=== PATIENT | female | born 1955 | race African-American/Black ===

== ENCOUNTER → 2017-04-16 | Outpatient (CLI) | payer OTHER ==
[~2017-04-16] VITALS: Ht 152.4 cm; Wt 63.5 kg
[~2017-04-16] MED LIST: ATARAX25 MG PO; COZAAR50 MG; COZAAR50 MG PO; LIPITOR20 MG; LIPITOR20 MG PO; SYNTHROID50 MCG; SYNTHROID50 MCG PO; ZANTAC300 MG; ZANTAC300 MG PO; ZYRTEC10 MG PO
== END | disposition home or self-care (01) ==
LOC: PPHC 15:25
DX: Z76.0 Encounter for issue of repeat prescription (principal)

== ENCOUNTER 2017-05-14 06:08 | Outpatient (CLI) | payer OTHER | END 2017-05-14 06:22 | disposition home or self-care (01) | LOC: LAB 06:08 | DX: Z00.00 Encounter for general adult medical examination without abnormal findings (principal) ==

== ENCOUNTER → 2017-06-07 | Outpatient (CLI) | payer OTHER | END | disposition home or self-care (01) | LOC: PPHC 15:48 | DX: Z01.89 Encounter for other specified special examinations (principal); Z76.0 Encounter for issue of repeat prescription ==

== ENCOUNTER 2017-10-30 06:08 | Outpatient (CLI) | payer OTHER | END 2017-10-30 06:20 | disposition home or self-care (01) | LOC: LAB 06:08 | DX: I10 Essential (primary) hypertension (principal) ==

== ENCOUNTER → 2018-01-10 06:20 | Outpatient (CLI) | payer OTHER | END | disposition home or self-care (01) | LOC: LAB 06:20 | DX: I10 Essential (primary) hypertension (principal); E78.2 Mixed hyperlipidemia; R73.03 Prediabetes ==

== ENCOUNTER 2018-03-13 06:19 | Outpatient (CLI) | payer OTHER | END 2018-03-13 06:29 | disposition home or self-care (01) | LOC: LAB 06:19 | DX: E78.89 Other lipoprotein metabolism disorders (principal) ==

== ENCOUNTER 2018-10-17 06:06 | Outpatient (CLI) | payer OTHER | END 2018-10-17 16:19 | disposition home or self-care (01) | LOC: LAB 06:06 | DX: E78.2 Mixed hyperlipidemia (principal); E03.8 Other specified hypothyroidism; E78.49 Other hyperlipidemia; E55.9 Vitamin D deficiency, unspecified; N39.0 Urinary tract infection, site not specified; I10 Essential (primary) hypertension ==

== ENCOUNTER 2019-02-06 06:06 | Outpatient (CLI) | payer OTHER | END 2019-02-06 15:00 | disposition home or self-care (01) | LOC: LAB 06:06 | DX: E03.8 Other specified hypothyroidism (principal) ==

== ENCOUNTER 2019-02-11 08:54 | Outpatient (CLI) | payer OTHER | END 2019-02-11 09:01 | disposition home or self-care (01) | LOC: SONOGRAMA 08:54 | DX: E04.8 Other specified nontoxic goiter (principal) ==

== ENCOUNTER 2019-05-08 06:21 | Outpatient (CLI) | payer OTHER | END 2019-05-08 06:27 | disposition home or self-care (01) | LOC: LAB 06:21 | DX: E55.9 Vitamin D deficiency, unspecified (principal); Z00.00 Encounter for general adult medical examination without abnormal findings; E03.8 Other specified hypothyroidism; E11.9 Type 2 diabetes mellitus without complications; E78.49 Other hyperlipidemia ==

== ENCOUNTER 2019-06-01 08:10 | Outpatient (CLI) | payer OTHER | END 2019-06-01 08:20 | disposition home or self-care (01) | LOC: SONOGRAMA 08:10 | DX: E04.8 Other specified nontoxic goiter (principal) ==

== ENCOUNTER 2019-12-08 10:56 | Outpatient (CLI) | payer OTHER | END 2019-12-08 10:58 | disposition home or self-care (01) | LOC: SONOGRAMA 10:56 | PROVIDERS: ATTEND Specialist | DX: E04.1 Nontoxic single thyroid nodule (principal) ==

== ENCOUNTER 2019-12-10 16:21 | Outpatient (CLI) | payer OTHER | END 2019-12-10 18:00 | disposition home or self-care (01) | LOC: PPH VACUNA 16:21 | DX: Z23 Encounter for immunization (principal) ==

== ENCOUNTER → 2020-01-27 06:26 | Outpatient (CLI) | payer OTHER | END | disposition home or self-care (01) | LOC: LAB 06:26 | PROVIDERS: ATTEND Internal Medicine | DX: I10 Essential (primary) hypertension (principal); E78.2 Mixed hyperlipidemia; E03.8 Other specified hypothyroidism; Z12.11 Encounter for screening for malignant neoplasm of colon; E11.00 Type 2 diabetes mellitus with hyperosmolarity without nonketotic hyperglycemic-hyperosmolar coma (NKHHC) ==

== ENCOUNTER 2020-03-03 07:41 | Outpatient (CLI) | payer OTHER | END 2020-03-03 07:43 | disposition home or self-care (01) | LOC: SONOGRAMA 07:41 | PROVIDERS: ATTEND Pathology Anatomic Pathology & Clinical Pathology | DX: E04.1 Nontoxic single thyroid nodule (principal) ==

== ENCOUNTER 2020-08-10 12:40 | Outpatient (CLI) | payer OTHER | END 2020-08-10 12:53 | disposition home or self-care (01) | LOC: NUCLEAR 12:40 | PROVIDERS: ATTEND Internal Medicine Cardiovascular Disease | DX: M81.0 Age-related osteoporosis without current pathological fracture (principal); E55.9 Vitamin D deficiency, unspecified ==

== ENCOUNTER 2020-09-21 06:07 | Outpatient (CLI) | payer OTHER | END 2020-09-21 06:08 | disposition home or self-care (01) | LOC: LAB 06:07 | PROVIDERS: ATTEND Internal Medicine Cardiovascular Disease | DX: E03.9 Hypothyroidism, unspecified (principal); E11.9 Type 2 diabetes mellitus without complications; I10 Essential (primary) hypertension; E55.9 Vitamin D deficiency, unspecified ==

== ENCOUNTER 2020-12-20 09:07 | Outpatient (CLI) | payer OTHER | END 2020-12-20 10:07 | disposition home or self-care (01) | LOC: PPH VACUNA 09:07 | PROVIDERS: ATTEND Emergency Medicine Pediatric Emergency Medicine | DX: Z23 Encounter for immunization (principal) ==

== ENCOUNTER 2021-04-20 09:50 | Outpatient (CLI) | payer OTHER | END 2021-04-20 10:00 | disposition home or self-care (01) | LOC: LAB 09:50 | PROVIDERS: ATTEND Internal Medicine | DX: I10 Essential (primary) hypertension (principal); I70.0 Atherosclerosis of aorta; E03.1 Congenital hypothyroidism without goiter ==

== ENCOUNTER 2021-08-03 07:36 | Outpatient (CLI) | payer OTHER | END 2021-08-03 07:49 | disposition home or self-care (01) | LOC: MAMO-SONO 07:36 | PROVIDERS: ATTEND Internal Medicine | DX: Z12.31 Encounter for screening mammogram for malignant neoplasm of breast (principal) ==

== ENCOUNTER 2021-10-04 06:07 | Outpatient (CLI) | payer OTHER | END 2021-10-04 06:09 | disposition home or self-care (01) | LOC: LAB 06:07 | PROVIDERS: ATTEND Internal Medicine | DX: I10 Essential (primary) hypertension (principal); I70.0 Atherosclerosis of aorta; E11.00 Type 2 diabetes mellitus with hyperosmolarity without nonketotic hyperglycemic-hyperosmolar coma (NKHHC); E78.2 Mixed hyperlipidemia; E03.1 Congenital hypothyroidism without goiter ==

== ENCOUNTER → 2022-05-15 13:14 | Outpatient (CLI) | payer OTHER | END | disposition home or self-care (01) | LOC: LAB 13:14 | PROVIDERS: ATTEND Internal Medicine Cardiovascular Disease | DX: D64.9 Anemia, unspecified (principal); R10.9 Unspecified abdominal pain; E78.5 Hyperlipidemia, unspecified; R73.09 Other abnormal glucose ==

== ENCOUNTER 2022-06-05 12:44 | Outpatient (CLI) | payer OTHER | END 2022-06-05 12:49 | disposition home or self-care (01) | LOC: SONOGRAMA 12:44 | DX: E04.1 Nontoxic single thyroid nodule (principal); R31.21 Asymptomatic microscopic hematuria ==

== ENCOUNTER 2022-07-20 06:20 | Outpatient (CLI) | payer OTHER | END 2022-07-20 06:23 | disposition home or self-care (01) | LOC: LAB 06:20 | PROVIDERS: ATTEND Internal Medicine | DX: E11.65 Type 2 diabetes mellitus with hyperglycemia (principal); E78.2 Mixed hyperlipidemia; I10 Essential (primary) hypertension; Z12.11 Encounter for screening for malignant neoplasm of colon ==

== ENCOUNTER 2022-10-26 06:21 | Outpatient (CLI) | payer OTHER | END 2022-10-26 06:23 | disposition home or self-care (01) | LOC: LAB 06:21 | PROVIDERS: ATTEND Internal Medicine | DX: E11.65 Type 2 diabetes mellitus with hyperglycemia (principal); I10 Essential (primary) hypertension; E03.8 Other specified hypothyroidism; C73 Malignant neoplasm of thyroid gland ==

== ENCOUNTER 2023-01-09 01:50 | Outpatient (CLI) | payer OTHER | END 2023-01-09 02:00 | disposition home or self-care (01) | LOC: PPH VACUNA 01:50 | PROVIDERS: ATTEND Emergency Medicine Pediatric Emergency Medicine | DX: Z23 Encounter for immunization (principal) | CPT/HCPCS: 90686; G0008 ==

== ENCOUNTER → 2023-01-11 06:45 | Outpatient (CLI) | payer OTHER ==
[2023-01-11 07:15] LABS: HEMATOCRIT 34.3 % (36.0-45.00); HEMOGLOBIN 11.7 g/dL (12.0-15.00); MEAN CELL VOLUME 87.7 fL (80.00-100.00); MEAN CORPUSCULAR HEMOGLOBIN 29.8 pg (27.00-32.0); PLATELET COUNT 211 K/uL (150-450); RED BLOOD COUNT 3.91 M/uL (4.00-6.00); RED CELL DISTRIBUTION WIDTH 13.9 % (11.5-14.5)
[2023-01-11 07:45] LABS: PH,URINE 5.5 (5.0-8.0); URINE APPEARANCE Clear; URINE BILIRRUBIN Negative (NEGATIVE); URINE BLOOD Trace; URINE COLOR Yellow; URINE GLUCOSE Negative (NEGATIVE); URINE LEUKOCYTE Negative; URINE NITRATE Negative; URINE PROTEIN Negative (NEGATIVE); URINE UROBILINOGEN 0.2 E.U./dl
[2023-01-11 07:50] LABS: URINE RBC 6.7 uL (0.0-20.8)
[2023-01-11 08:00] LABS: ALBUMIN 3.9 gm/dL (3.4-5.0); BILIRUBIN TOTAL 0.47 mg/dL (0.3-1.2); CALCIUM 9.2 mg/dL (8.5-10.1); CREATININE SERUM 1.01 mg/dL (0.55-1.02); GFR 55.01; GLOBULINA 3.2 G/DL (2.4-3.5); POTASSIUM 4.61 mEq/L (3.5-5.1); TOTAL PROTEIN 7.1 gm/dL (6.4-8.2)
[2023-01-11 08:07] LABS: URINE BACTERIA 3.7 uL (0.0-1933); URINE EPITHELIAL CELLS 1.2 uL (0.0-38.8); URINE WBC 1.6 uL (0.0-23.2)
== END | disposition home or self-care (01) ==
LOC: LAB 06:45
PROVIDERS: ATTEND Internal Medicine
DX: R05.9 Cough, unspecified (principal)

== ENCOUNTER 2023-05-01 10:16 | Outpatient (CLI) | payer OTHER | END 2023-05-01 10:22 | disposition home or self-care (01) | LOC: RAD 10:16 | PROVIDERS: ATTEND Internal Medicine | DX: M54.2 Cervicalgia (principal); J06.9 Acute upper respiratory infection, unspecified ==

== ENCOUNTER 2023-05-24 06:04 | Outpatient (CLI) | payer OTHER ==
[2023-05-24 07:10] LABS: HEMOGLOBIN 11.8 g/dL (12.0-15.00); MEAN CELL VOLUME 89.2 fL (80.00-100.00); MEAN CORPUSCULAR HEMOGLOBIN 30.2 pg (27.00-32.0); MEAN CORPUSCULAR HGB CONC 33.9 g/dl (32.0-36.0); PLATELET COUNT 223 K/uL (150-450); RED BLOOD COUNT 3.92 M/uL (4.00-6.00); RED CELL DISTRIBUTION WIDTH 13.8 % (11.5-14.5)
[2023-05-24 07:14] LABS: PH,URINE 5.5 (5.0-8.0); URINE APPEARANCE Clear; URINE BILIRRUBIN Negative (NEGATIVE); URINE BLOOD Moderate; URINE COLOR Yellow; URINE GLUCOSE Negative (NEGATIVE); URINE LEUKOCYTE Negative; URINE NITRATE Negative; URINE PROTEIN Negative (NEGATIVE); URINE UROBILINOGEN 0.2 E.U./dl
[2023-05-24 07:18] LABS: URINE BACTERIA 7.5 uL (0.0-1933); URINE EPITHELIAL CELLS 2.1 uL (0.0-38.8); URINE WBC 3.2 uL (0.0-23.2)
[2023-05-24 07:46] LABS: ALBUMIN 3.8 gm/dL (3.4-5.0); BILIRUBIN TOTAL 0.81 mg/dL (0.3-1.2); CALCIUM 9.6 mg/dL (8.5-10.1); CHOL HDL RATIO 3.4 (0-5.0); CREATININE SERUM 0.99 mg/dL (0.55-1.02); GFR 56.12; GLOBULINA 3.1 G/DL (2.4-3.5); POTASSIUM 4.23 mEq/L (3.5-5.1); T4 FREE 1.17 NG/ML (0.76-1.46); TOTAL PROTEIN 6.9 gm/dL (6.4-8.2); TSH 1.91 uIU/mL (0.358-3.74)
== END 2023-05-24 06:05 | disposition home or self-care (01) ==
LOC: LAB 06:04
PROVIDERS: ATTEND Internal Medicine
DX: E11.65 Type 2 diabetes mellitus with hyperglycemia (principal); E78.2 Mixed hyperlipidemia; I10 Essential (primary) hypertension; E03.8 Other specified hypothyroidism; C73 Malignant neoplasm of thyroid gland; E55.0 Rickets, active; D50.8 Other iron deficiency anemias; R30.0 Dysuria; Z12.11 Encounter for screening for malignant neoplasm of colon

== ENCOUNTER 2023-12-21 07:18 | Outpatient (CLI) | payer OTHER ==
[2023-12-21 07:46] LABS: PH,URINE 5.5 (5.0-8.0); URINE APPEARANCE Clear; URINE BILIRRUBIN Negative (NEGATIVE); URINE BLOOD Moderate; URINE COLOR Yellow; URINE GLUCOSE Negative (NEGATIVE); URINE KETONE Negative (NEGATIVE); URINE LEUKOCYTE Trace; URINE NITRATE Negative; URINE PROTEIN Negative (NEGATIVE)
[2023-12-21 07:47] LABS: URINE BACTERIA 28.9 uL (0.0-1933); URINE RBC 37.7 uL (0.0-20.8); URINE WBC 19.7 uL (0.0-23.2)
[2023-12-21 08:47] LABS: ALBUMIN 4.1 gm/dL (3.4-5.0); BILIRUBIN TOTAL 0.35 mg/dL (0.3-1.2); CALCIUM 9.5 mg/dL (8.5-10.1); CHOL HDL RATIO 2.4 (0-5.0); CREATININE SERUM 1.17 mg/dL (0.55-1.02); GFR 46.28; GLOBULINA 3.4 G/DL (2.4-3.5); HEMATOCRIT 31.1 % (36.0-45.00); HEMOGLOBIN 10.6 g/dL (12.0-15.00); MEAN CELL VOLUME 87.1 fL (80.00-100.00); MEAN CORPUSCULAR HEMOGLOBIN 29.6 pg (27.00-32.0); PLATELET COUNT 278 K/uL (150-450); POTASSIUM 4.86 mEq/L (3.5-5.1); RED BLOOD COUNT 3.57 M/uL (4.00-6.00); RED CELL DISTRIBUTION WIDTH 14.1 % (11.5-14.5); TOTAL PROTEIN 7.5 gm/dL (6.4-8.2)
== END 2023-12-21 07:23 | disposition home or self-care (01) ==
LOC: LAB 07:18
PROVIDERS: ATTEND Internal Medicine Cardiovascular Disease
DX: D64.9 Anemia, unspecified (principal); N39.0 Urinary tract infection, site not specified; R10.9 Unspecified abdominal pain; E78.5 Hyperlipidemia, unspecified; E11.9 Type 2 diabetes mellitus without complications; R73.09 Other abnormal glucose

== ENCOUNTER 2023-12-31 01:05 | Outpatient (CLI) | payer OTHER | END 2023-12-31 01:30 | disposition home or self-care (01) | LOC: PPH VACUNA 01:05 | PROVIDERS: ATTEND Emergency Medicine Pediatric Emergency Medicine | DX: Z23 Encounter for immunization (principal) ==

== ENCOUNTER 2025-01-13 13:00 | Outpatient (CLI) | payer OTHER | END 2025-01-13 13:10 | disposition home or self-care (01) | LOC: PPH VACUNA 13:00 | PROVIDERS: ATTEND Emergency Medicine Pediatric Emergency Medicine | DX: Z23 Encounter for immunization (principal) ==